=== PATIENT | female | born 1995 | race Caucasian/White ===

== ENCOUNTER 2017-12-29 18:28 | Emergency (ER) | payer BC ==
[~2017-12-29] VITALS: Ht 160 cm; Wt 58.0 kg
[2017-12-29 18:51] VITALS: Ht 160 cm; Wt 58.0 kg
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
[2017-12-29 20:01] VITALS: BP 116/75; PULSE 58; TEMP 36.7; O2SAT 100
== END 2017-12-29 20:01 | disposition home or self-care (01) ==
LOC: C.EDB 18:31 → C.EDD 20:01
DX: S00.81XA Abrasion of other part of head, initial encounter (principal); S20.311A Abrasion of right front wall of thorax, initial encounter; S80.211A Abrasion, right knee, initial encounter; S02.5XXA Fracture of tooth (traumatic), initial encounter for closed fracture; V18.0XXA Pedal cycle driver injured in noncollision transport accident in nontraffic accident, initial encounter

== ENCOUNTER → 2018-05-03 | Outpatient (CLI) | payer BC | END | disposition home or self-care (01) | LOC: C.PAPS 14:52 | PROVIDERS: ATTEND Obstetrics & Gynecology | DX: Z01.419 Encounter for gynecological examination (general) (routine) without abnormal findings (principal) ==